=== PATIENT | male | born 1940 | race Caucasian/White ===

== ENCOUNTER 2017-06-14 10:39 | Emergency (ER) | payer OTHER ==
[2017-06-14 10:51] VITALS: BMI 23.3
[2017-06-14] MEDS ORDERED: amLODIPine BESYLATE 10 MG TABLET (FP) PO ONE (11:51)
[2017-06-14] MEDS ORDERED: predniSONE 20 MG TABLET (UD) PO ONE (11:51)
[2017-06-14] MEDS ORDERED: amLODIPine BESYLATE 5 MG TABLET (FP) ONE (12:21)
[2017-06-14] MEDS ORDERED: predniSONE 20 MG TABLET (UD) ONE (12:21)
--- NOTE | 2017-06-14 12:27 | PDOC ---
History of Present Illness - General Chief Complaint: Rash Stated Complaint: RASH Time Seen by Provider: 06/14/17 11:16 History Source: Patient - History of Present Illness Initial Comments: 06/14/17 12:20 Patient is a 77M with history of HTN here today complaining of a rash for the past two weeks. Patient states that he takes no medications and denies any new foods. Patient's son states that they tried changing soaps but this has not helped. Patient denies wheezing, shortness of breath and difficultly breathing. He does not currently have a primary care doctor. He states that he hasn't taken blood pressure medication for years and does not remember what he is on. He denies chest pain, shortness of breath, difficultly with urination. He denies any recent sore throat or other illness. Past History - Past Medical History Allergies/Adverse Reactions: Allergies Allergy/AdvReac Type Severity Reaction Status Date / Time aspirin AdvReac Nausea Verified 06/14/17 10:42 Home Medications: Ambulatory Orders Amlodipine Besylate [Norvasc -] 10 mg PO DAILY #14 tablet 06/14/17 predniSONE [Deltasone -] 60 mg PO DAILY #4 tablet 06/14/17 COPD: No Other medical history: DENIES. - Suicide/Smoking/Psychosocial Hx Smoking History: Never smoked Review of Systems - Review of Systems Comments:: 06/14/17 12:27 GENERAL/CONSTITUTIONAL: No fever or chills. No weakness. HEAD, EYES, EARS, NOSE AND THROAT: No change in vision. No sore throat. CARDIOVASCULAR: No chest pain or shortness of breath RESPIRATORY: No cough, wheezing, or hemoptysis. GASTROINTESTINAL: No nausea, vomiting, diarrhea or constipation. GENITOURINARY: No dysuria, frequency, or change in urination. SKIN: No rash NEUROLOGIC: No headache, vertigo, loss of consciousness, or change in strength/ sensation. ENDOCRINE: No increased thirst. No abnormal weight change HEMATOLOGIC/LYMPHATIC: No anemia, easy bleeding, or history of blood clots. ALLERGIC/IMMUNOLOGIC: No hives, positive for skin allergy *Physical Exam - Vital Signs Last Vital Signs Temp Pulse Resp BP Pulse Ox 97.7 F 64 19 200/110 99 06/14/17 10:41 06/14/17 10:41 06/14/17 10:41 06/14/17 10:41 06/14/17 10:41 - Physical Exam Comments: 06/14/17 12:28 GENERAL: Awake, alert, and fully oriented, in no acute distress HEAD: No signs of trauma, normocephalic, atraumatic EYES: PERRLA, EOMI, sclera anicteric, conjunctiva clear ENT: Auricles normal inspection, hearing grossly normal, nares patent, oropharynx clear without exudates. Moist mucosa NECK: Normal ROM, supple, no lymphadenopathy, JVD, or masses LUNGS: No distress, speaks full sentences, clear to auscultation bilaterally HEART: Regular rate and rhythm, normal S1 and S2, no murmurs, rubs or gallops, peripheral pulses normal and equal bilaterally. ABDOMEN: Soft, nontender, normoactive bowel sounds. No guarding, no rebound. No masses EXTREMITIES: Normal inspection, Normal range of motion, no edema. No clubbing or cyanosis. NEUROLOGICAL: Cranial nerves II through XII grossly intact. Normal speech, normal gait, no focal sensorimotor deficits SKIN: Warm, Dry, diffuse macular rash with dry skin with sharp demarcations, Rash is on posterior and anterior surfaces from shoulders to knees, equal on both sides. Medical Decision Making - Medical Decision Making 06/14/17 12:31 Patient is 77M with history of HTN here today complaining of rash for two weeks. Vital signs notable for elevated blood pressure. Not taking any medication. Skin exam consistent with contact dermatitis given sharp borders, equal amount of involvement bilaterally, and areas involved. Palm sparing, lower arm sparing, lower leg sparing. BP elevated to 200/110, will give 10mg of amlodipine and reassess. Will give steroids and re-evaluate blood pressure. 06/14/17 13:16 BP 220/90 after amlodipine given. Per ACEP guidelines, will not attempt to dramatically alter blood pressure that is likely chronically elevated. Will refer to pcp for further management. *DC/Admit/Observation/Transfer Diagnosis at time of Disposition: Rash - Discharge Dispostion Disposition: HOME Condition at time of disposition: Good Admit: No - Prescriptions Prescriptions: Amlodipine Besylate [Norvasc -] 10 mg PO DAILY #14 tablet predniSONE [Deltasone -] 60 mg PO DAILY #4 tablet - Referrals - Patient Instructions Printed Discharge Instructions: DI for Rash Additional Instructions: You were seen today in the ED for a rash. You were also found to have high blood pressure. Please call to make an appointment today to see a new primary care physician. Please return if you have any new, worsening or concerning symptoms. - Post Discharge Activity
--- NOTE | 2017-06-14 13:20 | PDOC ---
Attending Attestation - Resident Resident Name: Nilo Doyle - ED Attending Attestation I have performed the following: I have examined & evaluated the patient, The case was reviewed & discussed with the resident, I agree w/resident's findings & plan - HPI HPI: 06/14/17 13:15 77y/o male who does not seek primary care follow-up presents for evaluation of worsening whole-body rash for the last 2 weeks. Itchy red rash progressive over torso and upper legs, no known triggers, no relief. There is no associated fevers or chills, has no known ALLERGIES, has not had any new exposures or travel or head sick contacts. No pain, no weakness, no complaints whatsoever. Patient has known hypertension and has been noncompliant with his medications for years. - Physicial Exam PE: 06/14/17 13:18 Elevated blood pressure, vitals are otherwise normal Well-appearing elderly male, ambulating in the room, speaking full sentences Blanching, erythematous, desquamating reactive rash to the torso and upper thighs, very well demarcated neuro and cardiopulmonary exams normal nvi throughout - Medical Decision Making 06/14/17 13:20 Patient seen and evaluated with the resident. I agree with the overall evaluation, assessment, and management with the following summary of visit: 77-year-old male with reactive dermatitis type rash, likely atopic or contact related. Very well demarcated and not diffuse, no evidence of systemic ALLERGIC reaction or respiratory involvement. Patient also with long-standing known hypertension without signs or symptoms of end organ injury. Steroid course for the rash, dermatology referral PCP referral for the elevated blood pressure, will start amlodipine empirically
[2017-06-14 13:22] VITALS: BP 220/90; PULSE 80; TEMP 98
== END 2017-06-14 13:27 | disposition home or self-care (01) ==
LOC: JER 10:39
DX: R21 Rash and other nonspecific skin eruption (principal); I10 Essential (primary) hypertension; Z88.6 Allergy status to analgesic agent
CPT/HCPCS: 99283-25

== ENCOUNTER 2018-06-15 19:20 | Emergency (ER) | payer OTHER ==
--- NOTE | 2018-06-15 19:24 | PDOC ---
Rapid Medical Evaluation Time Seen by Provider: 06/15/18 19:23 Medical Evaluation: Allergies Allergy/AdvReac Type Severity Reaction Status Date / Time aspirin AdvReac Nausea Verified 06/14/17 10:42 06/15/18 19:23 HPI: atraumatic L hand swelling x 2 days PE: L hand swelling about the 1st MCPJ Orders: X-ray Discharge Disposition - Diagnosis Gout of hand - Referrals - Patient Instructions - Post Discharge Activity
[2018-06-15 19:27] VITALS: BMI 33.3
--- NOTE | 2018-06-15 20:28 | PDOC ---
History of Present Illness - General Chief Complaint: Redness To Affected Area Stated Complaint: SWOLLEN LEFT HAND Time Seen by Provider: 06/15/18 19:23 - History of Present Illness Initial Comments: 06/15/18 21:25 The patient is a 78 year old male with a history of HTN who presents for evaluation of left wrist and arm pain. The patient is accompanied by family who assist in providing the history. They note a 2 day history of redness, swelling and pain to the left wrist. They state that the patient has had similar symptoms in the past which usually self-resolve after 1-2 days, however this time the pain has been getting progressively worse and not resolving prompting his presentation to the ED for further evaluation. The patient reports reduced range of motion of the left wrist secondary to pain. He otherwise denies fevers, chills, SOB, chest pain, nausea, vomiting, abdominal pain, or changes with urination or bowel movements. He denies any prior trauma to the joint as well. Past History - Past Medical History Allergies/Adverse Reactions: Allergies Allergy/AdvReac Type Severity Reaction Status Date / Time aspirin AdvReac Nausea Verified 06/14/17 10:42 Home Medications: Ambulatory Orders Amlodipine Besylate [Norvasc -] 10 mg PO DAILY #14 tablet 06/14/17 predniSONE [Deltasone -] 60 mg PO DAILY #4 tablet 06/14/17 Clindamycin [Cleocin -] 300 mg PO TID #21 capsule 06/15/18 COPD: No - Suicide/Smoking/Psychosocial Hx Smoking History: Never smoked Review of Systems - Review of Systems Comments:: 06/15/18 21:28 Constitutional: No fevers, chills, fatigue, malaise HEENT: No Rhinorrhea, nasal congestion, visual changes Cardiovascular: No chest pain, syncope, palpitations, lightheadedness Respiratory: No Cough, SOB, Hemoptysis, Gastrointestinal: No Abdominal pain, Nausea, Vomiting, Constipation, Diarrhea, Melena Genitourinary: No Dysuria, Frequency, Urgency, Hesitancy, Hematuria, Flank pain Musculoskeletal: Left wrist pain and swelling. No Myalgia, arthralgia Skin: Redness to the left wrist. No rashes, itching, bruising, pallor Neurologic: No Headache, Dizziness, Numbness, Weakness, or Tingling Psychiatric: No Hallucinations. No SI or HI *Physical Exam - Vital Signs Last Vital Signs Temp Pulse Resp BP Pulse Ox 99.2 F 93 H 18 197/107 H 97 06/15/18 19:24 06/15/18 19:24 06/15/18 19:24 06/15/18 19:24 06/15/18 19:24 - Physical Exam Comments: 06/15/18 21:29 General Appearance: Nourished. No Apparent Distress HEENT: No Pharyngeal Erythema, Tonsillar Exudate, Tonsillar Erythema Neck: No Cervical Lymphadenopathy Respiratory/Chest: Lungs Clear, Normal Breath Sounds. No Crackles, Rales, Rhonchi, Wheezing Cardiovascular: Regular Rhythm, Regular Rate. No Murmur, Gallops, Rubs Gastrointestinal/Abdominal: Normal Bowel Sounds, Soft. No Guarding, Rebound, Tenderness Musculoskeletal: No CVA Tenderness Extremity: Erythema and warmth to the left wrist with tenderness to palpation and reduced range of motion. Erythema extending to the forearm. Normal Capillary Refill Integumentary: Normal Color, Dry, Warm Neurologic: Fully Oriented, Alert, Normal Mood/Affect, Normal Response, ED Treatment Course - LABORATORY CBC & Chemistry Diagram: 06/15/18 22:30 06/15/18 22:30 Medical Decision Making - Medical Decision Making 06/15/18 21:35 The patient is a 78 year old male with a history of HTN who presents for evaluation of left wrist and arm pain. Differential includes but is not limited to: Infectious, Gout, Metabolic Derangement. Given the patient's history and physical exam, we will obtain a cbc, cmp, uric acid and plain films to evaluate further. We will continue to monitor and reassess while here in the ED. 06/15/18 23:49 CBC demonstrates an elevated WBC to 16. We cannot rule out a septic arthritis at this time. We are recommending admission for iv antibiotics and further management. Upon discussing admission, the patient's son states that he does not want the patient admitted. We discussed the risks and plan with the patient over assistant professor of psychology phone who voiced that he wished to leave A. I believe this patient is of sound mind and competent to refuse medical care. The patient is responding and asking questions appropriately. The patient is oriented to person, place and time. The patient is not psychotic, delusional, suicidal, homicidal or hallucinating. The patient demonstrates a normal mental capacity to make decisions regarding their healthcare. The patient is clinically sober and does not appear to be under the influence of any illicit drugs at this time. The patient has been advised of the risks, in layman terms, of leaving AMA which include, but are not limited to cardiac arrest, severe infection, dehydration, myocardial infarction, arrhythmia, stroke, respiratory failure, , coma, permanent disability, loss of current lifestyle, delay in diagnosis. Alternatives have been offered - the patient remains steadfast in their wish to leave. The patient has been advised that should they change their mind they are welcome to return to this hospital, or any other, at any time. The patient understands that in no way does an AMA discharge mean that I do not want them to have the best medical care available. To this end, I have provided appropriate prescriptions, referrals, and discharge instructions. Pt will be treated with Clindamycin and close follow up with primary care doctor with reevaluation. Return precautions advised, call 911 immediately if severe life threatening symptoms or concerns.. Pt has verbalized understanding of information provided, questions answered. The patient did sign AMA paperwork. *DC/Admit/Observation/Transfer Diagnosis at time of Disposition: Left wrist pain - Discharge Dispostion Disposition: AGAINST MEDICAL ADVICE Condition at time of disposition: Stable - Prescriptions Prescriptions: Clindamycin [Cleocin -] 300 mg PO TID #21 capsule - Referrals Referrals: Joann Castro MD [Primary Care Provider] - - Patient Instructions Printed Discharge Instructions: DI for Wrist Pain Additional Instructions: 1) Please follow-up with your primary care doctor in the next 2-3 days. Please call tomorrow to schedule a follow up appointment. If you cannot follow up with your doctor within 1 week please return to the Emergency Department for any urgent issues. 2) If you have any worsening of symptoms or any other concerns please return to the ER immediately. Return if worsening symptoms including fevers, headache, vomiting, visual or hearing disturbances, abdominal pain, chest pain, shortness of breath, syncope, dehydration, inability to take things by mouth/vomiting, altered mental status, or worsening concerning symptoms. 3) Please continue taking your home medications as directed. Your medications on discharge include Clindamycin. Side effects may include upset stomach, abdominal pain, vomiting, or diarrhea. Do not drink alcohol with your medications. - Post Discharge Activity
[2018-06-15 22:38] LABS: HEMOGLOBIN 14.1 GM/dL (11.7-16.9)
[2018-06-15 22:50] LABS: BASO % 0.6 % (0-2.0); EOS % 0.4 % (0-4.5); HEMATOCRIT 44.6 % (35.4-49); LYMPH % 9.9 % (8-40); MCH 20.9 pg (25.7-33.7); MCHC 31.7 g/dl (32.0-35.9); MEAN PLT VOLUME 7.5 fl (7.5-11.1); MONO % 7.3 % (3.8-10.2); NEUT % 81.8 % (42.8-82.8); PLATELET COUNT 915 K/MM3 (134-434); RBC 6.75 M/mm3 (4.00-5.60); RDW 16.4 % (11.9-15.9); WHITE BLOOD COUNT 16.6 K/mm3 (4.0-10.0)
--- NOTE | 2018-06-15 23:37 | PDOC ---
Documentation entered by Jared Rudolph SCRIBE, acting as scribe for Abbey Elena DO. Abbey Elena DO: This documentation has been prepared by the Ronni cadena Matthew, SCRIBE, under my direction and personally reviewed by me in its entirety. I confirm that the documentation accurately reflects all work, treatment, procedures, and medical decision making performed by me. Attending Attestation - Resident Resident Name: Isaac Hdz - ED Attending Attestation I have performed the following: I have examined & evaluated the patient, The case was reviewed & discussed with the resident, I agree w/resident's findings & plan - HPI HPI: 06/15/18 20:56 Patient is a 78 year old male with a significant past medical history of HTN, who presents to the ED with complaints of left wrist pain that began x2 days ago. Patient reports experiencing right wrist pain that he states has gradually increased over time. He reports experiencing associated right wrist edema and erythema. Patient states he has experienced this before but states it usually resolved on its own in 2 days and has never been this bad, prompting him to come into the ED for further evaluation. Denies chest pain, Sob. Denies nausea, vomiting. Denies fevers, chills. Denies constipation, diarrhea. Denies dysuria, hematuria. Denies contact with sick individuals, out of state travelling. Denies any other symptoms. Allergies: Aspirin Social history: No smoking. No alcohol. No illicit drugs. Surgical history: None PMD: DR. Castro - Physicial Exam PE: 06/15/18 20:56 Agree with residents Physical Exam. - Medical Decision Making 06/15/18 23:35 78-year-old male with painful swelling to the left wrist Exam is consistent with cellulitis, septic arthritis cannot be ruled out Patient has a significant elevation of his white blood cells IV antibiotics and admission was recommended The patient's son who is at the bedside adamantly refused to allow the patient to be admitted to the hospital stating he wants to a different facility, he had placed to staff members that he wanted a second opinion Translation was provided in [place] to the patient who has expressed that he would like to leave AGAINST MEDICAL ADVICE and understands the risks including loss of life and limb
[2018-06-15 23:40] LABS: ANISOCYTOSIS 1+
[2018-06-15 23:41] LABS: OVALOCYTE 2+
[2018-06-15 23:49] VITALS: BP 186/94; PULSE 100; TEMP 99.4
[2018-06-15 23:56] LABS: ALBUMIN 3.7 g/dl (3.4-5.0); BILIRUBIN,TOTAL 0.8 mg/dL (0.2-1); CALCIUM 8.8 mg/dL (8.5-10.1); CREATININE 1.6 mg/dL (0.55-1.3); POTASSIUM 4.3 mmol/L (3.5-5.1); TOT PROT 6.7 g/dl (6.4-8.2); URIC ACID 5.8 mg/dL (2.6-7.2)
== END 2018-06-15 23:40 | disposition left against medical advice (07) ==
LOC: JER 19:20
DX: M25.532 Pain in left wrist (principal); D72.828 Other elevated white blood cell count; I10 Essential (primary) hypertension
CPT/HCPCS: 36415; 80053; 84550; 85025; 99282-25